=== PATIENT | male | born 1940 | race Caucasian/White ===

== ENCOUNTER 2017-04-25 22:31 | Emergency (ER) | payer OTHER ==
[~2017-04-25 22:31] MED LIST: FISH OIL 1,0001 CAP PO; VITAMIN A PO; VITAMIN B PO; VITAMIN C PO; VITAMIN D PO; VITAMIN E PO
== END 2017-04-26 00:05 | disposition home or self-care (01) ==
LOC: CED 22:31
DX: S60.572A Other superficial bite of hand of left hand, initial encounter (principal); I10 Essential (primary) hypertension; Z88.0 Allergy status to penicillin; W54.0XXA Bitten by dog, initial encounter; Y92.410 Unspecified street and highway as the place of occurrence of the external cause
CPT/HCPCS: 12004; 99283